=== PATIENT | male | born 1960 | race Caucasian/White ===

== ENCOUNTER 2016-09-18 03:44 | Outpatient (CLI) ==
[2014-12-20 13:12] VITALS: BMI 29.6
== END 2016-09-18 03:45 | disposition home or self-care (01) ==
LOC: AMBL 03:44
PROVIDERS: ATTEND Emergency Medicine
DX: R10.11 Right upper quadrant pain (principal); R07.9 Chest pain, unspecified; C06.9 Malignant neoplasm of mouth, unspecified; Z98.890 Other specified postprocedural states

== ENCOUNTER 2017-09-25 10:34 | Outpatient (CLI) ==
[2014-12-20 13:12] VITALS: BMI 29.6
== END 2017-09-25 10:35 | disposition home or self-care (01) ==
LOC: LAB 10:34
PROVIDERS: ATTEND Family Medicine
DX: E78.5 Hyperlipidemia, unspecified (principal); I25.10 Atherosclerotic heart disease of native coronary artery without angina pectoris
CPT/HCPCS: 36415; 80053; 80061

== ENCOUNTER 2018-10-15 09:02 | Outpatient (CLI) ==
[2014-12-20 13:12] VITALS: BMI 29.6
--- NOTE | 2018-10-15 12:37 | MRI ---
EXAM: MRI lumbar spine without IV contrast. DATE: 10/15/2018. HISTORY: Low back pain. TECHNIQUE: Sagittal and axial T1W and T2W sequences of the lumbar spine along with sagittal IR and c oronal T2W sequences were obtained using 1.5 Teresa magnet. No IV contrast. COMPARISON: None. FINDINGS: There are five classic [id number] lumbar vertebra. At the thoracolumbar junction, th ere is a transitional vertebra with either hypoplastic ribs or unusual transverse processes. No prio r chest studies are available for comparison. For the purposes of this dictation, this transitional vertebra will be referred to as T12. A 3.7 mm retrolisthesis of L3 relative to L4 and a 3 mm anterolisthesis of L4 relative to L5 are obse rved. There is also approximately 5.3 mm left lateral subluxation of L4 relative to L5. No other irene bluxation, acute fracture, osseous malignancy, or definitive pars interarticularis defect is identifi ed. Lumbar vertebra are overall normal in height, although there are endplate indentations at T11 th rough L4 vertebra. Prominent L3-4 and small L4-5 osteophytes are noted. A T2W/T1W bright, 7.3 x 7.3 mm focus in the L2 body may be an atypical hemangioma. Marked Modic type 1 degenerate endplate dominguez ges, disc desiccation, and marked disc space narrowing are present at L3-4. Disc desiccation and min or disc space narrowing are evident at L4-5. No acute sacral fracture or stress reaction is demonstr ated. SI joints are unremarkable. Conus medullaris terminates at L1. Visible spinal cord is normal . No retroperitoneal lymphadenopathy, paraspinal mass, or aortic aneurysm is detected. Atherosclerotic plaques are scattered in the aortic wall. Paraspinal musculature is symmetric bilaterally. Visible portions of the liver, spleen, adrenal glands and kidneys reveal no abnormality. A few descending c olon diverticuli are visible. Segmental analysis: T11-12: Normal. T12-L1: Normal. L1-2: Minimal posterior to foraminal disc bulge causes slight bilateral inferior foraminal encroachm ent. No central canal stenosis. L2-3: Minimal concentric disc bulge and minor facet arthropathy cause triangulation of the canal and slight left foraminal encroachment. Left L2 nerve root contacts the disc bulge near the lateral mar gin of the foramen. L3-4: Minor retrolisthesis of L3, small pseudodisc bulge, mild facet arthropathy, and mild ligamentu m flavum hypertrophy cause mild central canal stenosis, moderate right foraminal stenosis, and marked left foraminal stenosis. Each L3 nerve root contacts the disc bulge near the lateral margin of the foramen. L4-5: Minor anterolisthesis of L4, small concentric disc bulge, moderate facet arthropathy, mild lef t facet arthropathy, and mild ligamentum flavum hypertrophy cause moderate central canal stenosis and marked bilateral foraminal stenoses. Each L4 nerve root contacts disc bulge near the foramen. Tiny right facet effusion is noted. There is mild bilateral lateral recess stenosis near the L5 superior plate. L5-S1: Normal, except for minor bilateral facet arthropathy IMPRESSIONS: 1. Lumbar spine mild levoscoliosis, moderate spondylosis, mild facet arthropathy, minor subluxations , and multilevel DDD. 2. Multilevel lumbar foraminal stenoses. Left L2, both L3, and both L4 nerve roots contact disc bul ges near the foramen, and may be sources for pain/radiculopathy. 3. Multilevel central canal stenoses (L2-3: Minor. L3-4: Mild. L4-5: Moderate). 4. Chronic endplate indentations at T11 through T3. 5. Benign atypical hemangioma in the L2 body. 6. Abdominal aortic atherosclerosis. 7. Descending colon diverticulosis.
== END 2018-10-15 09:03 | disposition home or self-care (01) ==
LOC: RAD 09:02
PROVIDERS: ATTEND Family Medicine
DX: M54.5 Low back pain (principal)